=== PATIENT | male | born 1995 | race Caucasian/White ===

== ENCOUNTER 2020-03-20 11:35 | Emergency (ER) | payer OTHER ==
[2020-03-20 11:42] VITALS: BP 124/73; PULSE 115; TEMP 98.6; BMI 27.3
--- NOTE | 2020-03-20 11:46 | PDOC ---
Rapid Medical Evaluation Time Seen by Provider: 03/20/20 11:41 Medical Evaluation: Allergies Allergy/AdvReac Type Severity Reaction Status Date / Time No Known Allergies Allergy Unverified 03/20/20 11:42 Vital Signs Temp Pulse Resp BP Pulse Ox 98.6 F 115 H 18 124/73 98 03/20/20 11:39 03/20/20 11:39 03/20/20 11:39 03/20/20 11:39 03/20/20 11:39 03/20/20 11:42 CC: hydraulic press landed on left hand, unknown last tdap, Exam: left 1st digit nailbed avulsed, noted complex lac to lat aspect of left 2nd digit plan: xray, tdap, percocet Discharge Disposition - Diagnosis Laceration of finger of left hand - Referrals - Patient Instructions - Post Discharge Activity
[2020-03-20] MEDS ORDERED: DIPHTH,PERTUSS(ACELL),TET 0.5 ML DISP.SYRIN IM ONE ×2 (12:09→12:14)
[2020-03-20] MEDS ORDERED: ceFAZolin 2 GRAM PREMIX BAG IVPB ONE (12:42)
[2020-03-20] MEDS ORDERED: CEFAZOLIN 2 GM/D5W 2 GM/50 ML ML IVPB ONE (13:14)
--- NOTE | 2020-03-20 13:38 | PDOC ---
History of Present Illness - General Chief Complaint: Laceration Stated Complaint: LT. HAND INJURY Time Seen by Provider: 03/20/20 11:41 - History of Present Illness Initial Comments: 03/20/20 13:31 24-year-old male with a past medical history of ADHD presents for evaluation after a crush injury. Patient was working with a hydraulic press when he accidentally got his thumb and index finger of his left hand caught in the hydra ulic press. He is current on tetanus. Past History - Medical History Allergies/Adverse Reactions: Allergies Allergy/AdvReac Type Severity Reaction Status Date / Time No Known Allergies Allergy Unverified 03/20/20 11:42 Home Medications: Ambulatory Orders Cephalexin [Keflex] 500 mg PO QID #20 capsule 03/20/20 Oxycodone HCl/Acetaminophen [Percocet 5-325 mg Tablet] 1 - 2 tab PO Q6H PRN #8 tab MDD 4 03/20/20 COPD: No Psychiatric Problems: Yes - Psycho-Social/Smoking History Smoking History: Never smoked Have you smoked in the past 12 months: No Information on smoking cessation initiated: No - Substance Abuse Hx (Audit-C & DAST Scrn) How often the patient has a drink containing alcohol: Never Score: In Men: 4 or > Positive; In Women: 3 or > Positive: 0 Screen Result (Pos requires Nsg. Audit-10AR): Negative In the last yr the pt used illegal drug/Rx for NonMed reason: No Score: Yes response is considered Positive: 0 Screen Result (Positive result requires Nsg. DAST-10): Negative Review of Systems - Review of Systems Musculoskeletal: Yes: See HPI *Physical Exam - Vital Signs Last Vital Signs Temp Pulse Resp BP Pulse Ox 98.6 F 115 H 18 124/73 98 03/20/20 11:39 03/20/20 11:39 03/20/20 11:39 03/20/20 11:39 03/20/20 11:39 - Physical Exam 03/20/20 13:32 There is a vertically oriented laceration on the ulnar aspect of the left second finger starting from the ulnar aspect of the DIPJ extending proximally all the way to the PIPJ. Exposing subcutaneous fat FDS and FDP work independently. There is also a nailbed laceration of the left thumb. The left thumb nail was removed the nailbed was inspected and there is a K shaped laceration. Flexor tendon function works. No gross motor deficits sensory intact. ED Treatment Course - Medications Given in the ED: ED Medications Discontinued Medications Generic Name Dose Route Start Last Admin Trade Name Emmett PRN Reason Stop Dose Admin Cefazolin Sodium/Dextrose 2 gm 03/20/20 12:42 03/20/20 13:25 Ancef 2 Gm Premixed Ivpb - IVPB 03/20/20 12:43 2 gm ONCE ONE Administration Diphtheria/Tetanus/Acell Pertussis 0.5 ml 03/20/20 12:09 03/20/20 12:12 Boostrix - IM 03/20/20 12:10 0.5 ml .ONCE ONE Administration Oxycodone/Acetaminophen 1 combo 03/20/20 11:42 03/20/20 12:16 Percocet 5/325 - PO 03/20/20 11:43 Not Given ONCE ONE Medical Decision Making - Medical Decision Making 03/20/20 13:32 Aseptically a digital block was introduced into the thumb and second finger of the left hand. The nail was removed from the thumb the nailbed laceration was copiously irrigated inspected to its base in a bloodless field and then again copiously irrigated 4 oh gut was used to close the laceration and 4 simple interrupted sutures. The nail was then debrided cleaned with Betadine and placed back in at the proximal nail fold held in place with two 4-0 Chromic Gut sutures both on the ulnar and radial aspect of the left thumb. The second finger vertically oriented laceration on the ulnar aspect of the finger was inspected to its base in a bloodless field then copiously irrigated. There was no identification of foreign body. Closed with 3-0 nylon sutures in a simple interrupted fashion. The best situation dressing was placed on both the thumb and the second finger. Prescriptions for Percocet and Keflex were given. A dose of Ancef 2 g was given in the emergency room. Patient has follow-up with hand surgery. Discussed wound care going forward keeping the dressing on for the next 48 hours removing it after 48 hours and then washing the area with soap and water and leaving it open to air as much as possible. Patient was here with his father who is his chief operator synthesis and is in agreement with the plan. Wound check in 48 hours either at hand surgery or back in the emergency room I have reviewed the pathophysiology with the patient And his father. They are in agreement with the treatment plan all questions were answered to their satisfaction. Understanding for follow-up without fail was also conveyed to the patient. Again they are in agreement. 03/20/20 13:35 Of note the x-rays taken in the emergency room show a tuft fracture of the left thumb Discharge - Discharge Information Problems reviewed: Yes Clinical Impression/Diagnosis: Laceration of finger of left hand, Nailbed laceration, finger Disposition: HOME - Admission No - Additional Discharge Information Prescriptions: Cephalexin [Keflex] 500 mg PO QID #20 capsule Oxycodone HCl/Acetaminophen [Percocet 5-325 mg Tablet] 1 - 2 tab PO Q6H PRN #8 tab MDD 4 PRN Reason: Pain - Follow up/Referral Referrals: Matt Valle [Primary Care Provider] - Bert Wang MD [Staff Physician] - - Patient Discharge Instructions Additional Instructions: Please keep the dressing on for the next 48 hours. After 48 hours you may remove the dressing and leave the area open to air. You may wash the wound with soap and water. You may take a shower but not a bath so do not submerge the wounds in water. Return to the emergency room in 48 hours for a wound check. Sooner if problems develop. Follow-up with hand surgery without fail either orthopedic surgery or plastic hand surgery for further evaluation and treatment options. Please take the antibiotics as directed and sparingly take the pain medication. Only take the pain medication for breakthrough pain. For now only use Motrin for regular pain and if you need something more than you may take the prescription pain medication. Again follow-up in 48 hours for further evaluation and treatment options with hand surgery. If you cannot can Get an appointment with a hand surgeon within the next 48 hours return to the emergency room in 48 hours for wound check. - Post Discharge Activity
== END 2020-03-20 13:41 | disposition home or self-care (01) ==
LOC: JERFT 11:35
PROC: 3E0234Z Introduction of Serum, Toxoid and Vaccine into Muscle, Percutaneous Approach (ICD-10-PCS; principal; 2020-03-20)
PROC: 3E03329 Introduction of Other Anti-infective into Peripheral Vein, Percutaneous Approach (ICD-10-PCS; 2020-03-20)
DX: S61.211A Laceration without foreign body of left index finger without damage to nail, initial encounter (principal)
CPT/HCPCS: 73140-TC-LT-FY; 90715; 99284-25